=== PATIENT | male | born 1975 ===

== ENCOUNTER 2018-06-20 21:30 | Emergency (ER) | payer MEDICAID ==
[2018-06-20 21:30] VITALS: BMI 29.5
[2018-06-20] MEDS ORDERED: Tdap Vaccine 0.5 ml Vial (10-64 yrs) IM ONE ×2 (22:40→23:21)
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
[2018-06-21 00:57] VITALS: BP 146/91; PULSE 76; RESP 16; TEMP 98
[2018-06-21 01:05] VITALS: O2SAT 98
--- NOTE | 2018-06-21 11:55 | CT ---
Date of service: 06/20/2018 PROCEDURE: CT HEAD WITHOUT CONTRAST. HISTORY: head trauma COMPARISON: None available. TECHNIQUE: Axial computed tomography images were obtained through the head/brain without intravenous contrast. Supplemental Coronal and Sagittal projections created and reviewed. Radiation dose: Total exam DLP = 860.92 mGy-cm. This CT exam was performed using one or more of the following dose reduction techniques: Automated exposure control, adjustment of the mA and/or kV according to patient size, and/or use of iterative reconstruction technique. FINDINGS: HEMORRHAGE: No intracranial hemorrhage. BRAIN: No mass effect or edema. No atrophy or chronic microvascular ischemic changes. VENTRICLES: Unremarkable. No hydrocephalus. CALVARIUM: Unremarkable. PARANASAL SINUSES: Unremarkable as visualized. No significant inflammatory changes. MASTOID AIR CELLS: Unremarkable as visualized. No inflammatory changes. OTHER FINDINGS: None. IMPRESSION: No acute intracranial abnormalities. No significant findings to account for the clinical presentation. Concordant results (preliminary interpretation) provided by [facility]. Procedure Completed: 23:35. Preliminary Report: Interpreted and electronically signed: 23:46. Final Interpretation: 11:51. June 21, 2018.
== END 2018-06-21 01:07 ==
LOC: H.ER 21:30
DX: S01.01XA Laceration without foreign body of scalp, initial encounter (principal); Y35.813A Legal intervention involving manhandling, suspect injured, initial encounter; Y92.89 Other specified places as the place of occurrence of the external cause; F43.20 Adjustment disorder, unspecified; Z88.0 Allergy status to penicillin